=== PATIENT | female | born 1985 | race Caucasian/White ===

== ENCOUNTER → 2017-03-13 | Outpatient (CLI) | payer OTHER ==
[~2017-03-13] MED LIST: MOTRIN 400MG.400 MG PO; MOTRIN600 M1 PO; NOMEDS XX; PERCOCET 5/3251 EACH PO; SERTRALINE 50MG50 MG PO; ZOLOFT 50MG TAB50 MG PO
[2017-03-13 21:04] LABS: BUN 9 mg/dL (7-18)
[2017-03-13 21:08] LABS: GFR (ESTIMATED) 118 ML/MIN (59-)
== END ==
LOC: LAB 16:34
PROVIDERS: Internal Medicine
DX: M79.1 Myalgia (principal); R23.1 Pallor; R53.83 Other fatigue